=== PATIENT | male | born 1945 | race Hispanic/Latino ===

== ENCOUNTER 2017-11-20 06:13 | Observation (INO) | payer MEDICARE ==
[2017-11-20] MEDS ORDERED: NACL 0.9% 500 ML 500 ML IV SCH (07:00)
[2017-11-20 07:25] LABS: Basophils % (Auto) 0.5 % (0.0-1.8); Eosinophils # (Auto) 0.1 K/mm3 (0.0-0.4); Eosinophils % (Auto) 2.5 % (0.0-4.3); Hematocrit 37.9 % (35.5-45.6); Hemoglobin 12.7 gm/dl (11.8-15.2); Lymphocytes # (Auto) 2.1 K/mm3 (1.2-5.4); Lymphocytes % (Auto) 37.3 % (13.4-35.0); Mean Corpuscular HGB Conc 34 % (32-34); Mean Corpuscular Hemoglobin 31 pg (28-32); Mean Corpuscular Volume 92 fl (84-94); Monocytes # (Auto) 0.5 K/mm3 (0.0-0.8); Monocytes % (Auto) 9.5 % (0.0-7.3); Platelet Count 165 K/mm3 (140-440); Red Blood Count 4.12 M/mm3 (3.65-5.03); Red Cell Distribution Width 13.9 % (13.2-15.2)
[2017-11-20 07:34] LABS: INR 0.84 (0.87-1.13)
[2017-11-20 07:35] LABS: BUN/Creatinine Ratio 24; Blood Urea Nitrogen 19 mg/dL (9-20); Calcium 8.9 mg/dL (8.4-10.2); Hemolysis Index 4
[2017-11-20] MEDS ORDERED: HEPARIN/NS 5000 UNIT/500ML(CATH LAB) 0 ML IR ONE (08:16)
[2017-11-20] MEDS ORDERED: NITROGLYCERIN SYRINGE 0 ML ONE (08:17)
[2017-11-20] MEDS ORDERED: HEPARIN 10,000 UNITS/10 ML ONE (08:17)
[2017-11-20] MEDS ORDERED: XYLOCAINE 2% INFILTRATI ONE ×2 (08:17→08:32)
[2017-11-20] MEDS ORDERED: HEPARIN/NS 5000 UNIT/500ML(CATH LAB) 1,000 ML IR ONE (08:31)
[2017-11-20] MEDS ORDERED: VERSED ONE (08:32)
[2017-11-20] MEDS ORDERED: NITROGLYCERIN SYRINGE 3 ML ONE (08:32)
[2017-11-20] MEDS ORDERED: CALAN ONE (08:32)
[2017-11-20] MEDS ORDERED: SUBLIMAZE ONE (08:33)
[2017-11-20] MEDS: HEPARIN 10,000 UNITS/10 ML ONE ×2 (09:13→09:25)
[2017-11-20] MEDS ORDERED: EFFIENT PO ONE (09:50)
[2017-11-20] MEDS ORDERED: ALUM-MAG HYDROX-SIMETH 200-200-20MG/5ML ONE (09:52)
--- NOTE | 2017-11-20 14:12 | Cardiac Catherization Report ---
CARDIAC CATHETERIZATION REFERRING PHYSICIAN: Anand Smith MD INDICATION FOR PROCEDURE: The patient is a very pleasant 72-year-old gentleman, who presents to my office with chest pain, abnormal stress test with apical ischemia on 2 antianginal. Referred for left heart catheterization. Risks, benefits, and potential alternatives explained at length prior to obtaining informed consent. PROCEDURE IN DETAIL: The patient was brought to the catheterization lab in a postabsorptive state, prepped and draped in a sterile fashion. Adriel's test in right hand was normal. A 2 mL of 2% lidocaine used to anesthetize the right wrist. A standard 6-Telugu hydrophilic sheath used to cannulate the right radial artery via modified Seldinger technique. All exchanges performed to exchange a J-tip guidewire. JL3.5 catheter used to engage the left main. No dampening or ventricularization. Cineangiography performed in all projections. JR4 catheter used to cross the aortic valve under fluoroscopic guidance. Left ventriculography performed in 30 RIZO and 30 ZIMBABWEAN projections via hand injections, catheter flushed. Manual pullback performed with continuous pressure monitoring. Catheter used to engage the right coronary. No dampening or ventricularization. Cineangiography performed in all projections. Next, catheter removed from the body of wire. I directly supervised the moderate sedation with the use of fentanyl and Versed. FINDINGS: Left ventriculography reveals normal systolic performance with estimated ejection fraction of 55-60%. No evidence of aortic stenosis. Normal LVEDP. CORONARY ANATOMY: This is a codominant system. Right coronary is a moderate sized vessel, courses AV groove, distally bifurcates in the posterior descending and posterolateral branches. No discrete stenosis identified. Left main without significant disease, bifurcates left anterior descending and left circumflex. LAD is a moderate sized vessel, courses anterior intergroove, wraps around the apex. There is a 95% discrete stenosis at the takeoff of a second diagonal, which is small in size. Left circumflex without significant disease. This represents the culprit lesion given chest pain, abnormal stress test with apical ischemia and is codominant system. At this point, we turned our attention to PCI. Heparin was given. Abnormal ACT is confirmed. The patient loaded with aspirin and Effient. A [place] wire used to cross the lesion without difficulty. We predilation with 2.5 x 8 balloon at RODGER for 30 seconds. We used 2.75 x 12 Resolute drug-eluting stent at 11 RODGER for 30 seconds. Excellent angiographic result. Next, intravascular ultrasound was performed, multiple passes were made. Intravascular ultrasound reveals a well-opposed and well expanded stent with excellent final angiogram results. No complications noted. CONCLUSIONS: 1. Severe single vessel coronary disease with 95% discrete mid LAD stenosis consistent with apical ischemia and chest pain and symptom complex. 2. Successful IVUS guided PCI with placement of drug-eluting stent (Resolute 2.75 x 12) with excellent final angiographic and ultrasonographic results. 3. No other significant coronary disease noted. 4. Normal left ventricular systolic performance, estimated ejection fraction of 55-60%. 5. No evidence of aortic stenosis. At this point, we will load Effient. Continue statin therapy as well as aspirin. Risk factor modification. Results of procedure explained in length to the patient and family. All questions and concerns were addressed. The patient will be transferred to telemetry in stable condition. START TIME: 9:10. END TIME: 9:48. JOB# [id number] SBM/NTS
[2017-11-20] MEDS: LOPRESSOR PO SCH (14:18)
[2017-11-20] MEDS: PROTONIX PO SCH (14:29)
[2017-11-20] MEDS ORDERED: FISH OIL PO SCH (22:00)
[2017-11-21] MEDS: LOPRESSOR PO SCH ×2 (01:13→11:00)
[2017-11-21 05:08] LABS: Basophils % (Auto) 0.5 % (0.0-1.8); Eosinophils # (Auto) 0.2 K/mm3 (0.0-0.4); Eosinophils % (Auto) 2.9 % (0.0-4.3); Hematocrit 37.4 % (35.5-45.6); Hemoglobin 12.8 gm/dl (11.8-15.2); Mean Corpuscular HGB Conc 34 % (32-34); Mean Corpuscular Hemoglobin 31 pg (28-32); Mean Corpuscular Volume 91 fl (84-94); Monocytes # (Auto) 0.6 K/mm3 (0.0-0.8); Monocytes % (Auto) 8.8 % (0.0-7.3); Platelet Count 164 K/mm3 (140-440); Red Blood Count 4.13 M/mm3 (3.65-5.03); Red Cell Distribution Width 13.8 % (13.2-15.2)
[2017-11-21 05:33] LABS: BUN/Creatinine Ratio 18; Blood Urea Nitrogen 16 mg/dL (9-20); Calcium 8.4 mg/dL (8.4-10.2); Hemolysis Index 22
--- NOTE | 2017-11-21 08:16 | XRay Report ---
AP CHEST: HISTORY: Post PCI AP view of the chest demonstrates a normal mediastinal and cardiac contour with clear lungs and normal bony and soft tissue structures. IMPRESSION: Unremarkable AP chest.
[2017-11-21 08:40] VITALS: BP 122/66
[2017-11-21] MEDS ORDERED: CLARITIN PO SCH (10:00)
[2017-11-21] MEDS ORDERED: ASPIRIN PO SCH (10:00)
[2017-11-21] MEDS ORDERED: COZAAR PO SCH (10:00)
[2017-11-21] MEDS ORDERED: EFFIENT PO SCH (10:00)
--- NOTE | 2017-11-21 10:22 | Short Stay Summary ---
Short Stay Documentation Date of service: 11/21/17 - History H&P: obtained from office - Allergies and Medications Current Medications: Allergies No Known Allergies Allergy (Verified 11/20/17 07:33) Home Medications Medication Instructions Recorded Confirmed Last Taken Type Aspirin EC [Aspirin Enteric Coated 81 mg PO QDAY 11/20/17 11/20/17 11/20/17 05: 00 History TAB] AtorvaSTATin [Lipitor] 40 mg PO QHS 11/20/17 11/20/17 11/19/17 History Citalopram [celeXA] 20 mg PO QDAY 11/20/17 11/20/17 11/20/17 05:00 History Glucosamine/D3/Boswellia Carola 1 each PO 11/20/17 11/20/17 11/19/17 History [Osteo Bi-Flex Tablet] Hydrochlorothiazide [Hctz] 12.5 mg PO QDAY 11/20/17 11/20/17 11/20/17 05:00 History Loratadine [Claritin] 10 mg PO DAILY 11/20/17 11/20/17 11/20/17 05:00 History Losartan [Cozaar] 100 mg PO QDAY 11/20/17 11/20/17 11/20/17 05:00 History Pandora-3 Fatty Acids/Fish Oil [Fish 1 cap PO 11/20/17 11/20/17 11/19/17 History Oil] Pantoprazole [Protonix] 40 mg PO QDAY 11/20/17 11/20/17 11/20/17 05:00 History Ubidecarenone [Coq-10] 200 mg PO 11/20/17 11/20/17 11/19/17 History Active Medications Aspirin (Baby Aspirin) 81 mg PO QDAY [facility] Atorvastatin Calcium (Lipitor) 40 mg PO QHS [facility] Last Admin: 11/20/17 21:12 Dose: 40 mg Fish Oil (Fish Oil) 1,000 mg PO [facility] Last Admin: 11/20/17 21:12 Dose: 1,000 mg Loratadine (Claritin) 10 mg PO DAILY [facility] Losartan Potassium (Cozaar) 100 mg PO QDAY [facility] Metoprolol Tartrate (Lopressor) 12.5 mg PO BID [facility] Last Admin: 11/21/17 01:13 Dose: Not Given Pantoprazole Sodium (Protonix) 40 mg PO QDAY [facility] Last Admin: 11/20/17 14:29 Dose: Not Given Prasugrel (Effient) 10 mg PO QDAY [facility] - Physical exam General appearance: no acute distress Integumentary: no rash, no growths, no abnormal pigmentation HEENT: PERRLA Lungs: Clear to auscultation Heart: Regular rate, Normal S1, Normal S2 Gastrointestinal: normal, normoactive bowel sounds Extremities: no ischemia, pulses intact, pulses symmetrical, No edema, normal temperature, normal color, Full ROM Neurological: Normal gait, Normal speech, Strength at 5/5 X4 ext - Brief post op/procedure progress note Date of procedure: 11/20/17 Pre-op diagnosis: abnormal stress test Post-op diagnosis: other (CAD) Procedure: C with PCI - see dictated cath report Anesthesia: local Estimated blood loss: none Condition: stable - Hospital course Hospital course: Pt was noted to have chest pain with abnormal stress test in our office and thus presented yesterday for scheduled coronary angiography. He subsequently underwent PCI of mid LAD with ITZEL and was admitted overnight for observation. Pt remained clinically and hemodynamically stable throughout procedure and recovery and is medically stable for discharge home today. The pt has been seen in conjunction with Dr. Siddiqi who agrees with the assessment and plan of care. - Disposition Condition at discharge: Stable Disposition: DC-01 TO HOME OR SELFCARE - Discharge Diagnoses (1) CAD (coronary artery disease) Status: Chronic (2) HTN (hypertension) Status: Chronic (3) Hyperlipidemia Status: Chronic (4) Stented coronary artery Status: Chronic Short Stay Discharge Plan Activity: advance as tolerated Diet: low fat, low cholesterol, low salt Wound: open to air, keep clean and dry, per your surgeon's advice Follow up with: RONEY JENSEN MD [Primary Care Provider] - 7 Days DOUG NELSON MD [Staff Physician] - 7 Days (11/30/2017 @ 2:00PM) Prescriptions: Metoprolol [Lopressor TAB] 12.5 mg PO BID #60 tablet Prasugrel [Effient] 10 mg PO QDAY #30 tablet
[2017-11-21] MEDS ORDERED: BABY ASPIRIN PO SCH (11:00)
[2017-11-21] MEDS: PROTONIX PO SCH (11:00)
== END 2017-11-21 11:30 | disposition home or self-care (01) ==
LOC: CATHLABREC 06:13 → 4A 09:57
PROVIDERS: ADMIT Internal Medicine; ATTEND Internal Medicine
DX: I25.10 Atherosclerotic heart disease of native coronary artery without angina pectoris (principal); R94.39 Abnormal result of other cardiovascular function study; E78.2 Mixed hyperlipidemia; I10 Essential (primary) hypertension; Z82.49 Family history of ischemic heart disease and other diseases of the circulatory system; Z87.891 Personal history of nicotine dependence
CPT/HCPCS: 36415; 71045; 80048; 82550; 82553; 84484; 85025; 85610; 85730; 92978; 93005; 93010; 93458; A9270; C1725; C1753; C1769; C1874; C1887; C1894; C9600; G0378; J1644; J2250; J3010; J7040; 92928; Q9967